=== PATIENT | female | born 1945 | race Caucasian/White ===

== ENCOUNTER 2017-02-01 02:41 | Observation (INO) ==
--- NOTE | 2017-02-01 02:51 | Emergency Department Note ---
Disposition Clinical Impression: Chest pain Qualifiers: Chest pain type: unspecified Qualified Code(s): R07.9 - Chest pain, unspecified Disposition: Admitted As Inpatient Condition: Fair Referrals: Nicolas Ralph MD [Primary Care Provider] - Time of Disposition: 07:04 Chest Pain HPI - General Chief Complaint: ED Chest Pain Stated Complaint: chest pain Time Seen by Provider: 02/01/17 02:45 Vital Signs Reviewed: Yes Nursing Notes Reviewed: Yes - History of Present Illness Pt complaint: chest pain Onset (ago): Just [employer] Duration: constant Onset: during rest Pain Location: left chest Severity scale (1-10): 6 (6/10After nitroglycerin, 10 /10 prior to nitroglycerin ) Pain Radiation: none Improves with: nitroglycerin Worsens with: exertion Associated symptoms: Reports: other (Abdominal pain) Treatments prior to arrival chest pain: aspirin, nitroglycerin, oxygen - Related Data Home Medications Medication Instructions Recorded Confirmed Cyclobenzaprine [Flexeril] 10 mg PO BID PRN 02/01/17 02/01/17 Gabapentin [Neurontin] 200 mg PO TID 02/01/17 02/01/17 Ibuprofen [Motrin] 600 mg PO Q8HR PRN 02/01/17 02/01/17 Lisinopril/Hydrochlorothiazide 1 tab PO DAILY 02/01/17 02/01/17 [Zestoretic 20-25 mg Tablet] Metoprolol Tartrate [Lopressor] 50 mg PO BID 02/01/17 02/01/17 Omeprazole [PriLOSEC] 20 mg PO DAILY 02/01/17 02/01/17 Simvastatin [Zocor] 40 mg PO HS 02/01/17 02/01/17 Tizanidine HCl 4 mg PO TID PRN 02/01/17 02/01/17 traZODone [TraZODone] 50 mg PO HS 02/01/17 02/01/17 Allergies Allergy/AdvReac Type Severity Reaction Status Date / Time levothyroxine sodium Allergy Hives Verified 02/01/17 02:45 [From Synthroid] losartan Allergy Hives Verified 02/01/17 02:45 All systems ED: reviewed and negative except as stated. Constitutional: Denies: fever, chills Eyes: Denies: eye discharge ENT ED: Denies: throat pain, dental pain Cardiovascular: Reports: as per HPI. Denies: dyspnea on exertion, orthopnea Respiratory: Denies: cough, dyspnea, wheezes, hemoptysis Gastrointestinal: Reports: abdominal pain. Denies: nausea, vomiting Genitourinary: Denies: dysuria Musculoskeletal: Denies: back pain Integumentary: Denies: rash Neurological: Denies: headache, weakness Endocrine: Denies: fatigue Hematological/Lymphatic: Denies: easy bleeding Allergic/Immunologic: Denies: facial swelling Chest Pain PMH - Past Medical History Medical history: Reports: hyperlipidemia, hypertension, myocardial infarction, thyroid disease, other (chronic back pain) Prior Cardiac Testing/Procedures: Stress Test (early ), Cardiac Angiogram ( late ) Physical Exam - General Limitations: no limitations General appearance: alert, in no apparent distress - Head Head exam: normocephalic - Eye Eye exam: Present: EOMI. Absent: conjunctival injection - ENT ENT exam: normal oropharynx, mucous membranes moist - Neck Neck exam: Present: full ROM. Absent: tenderness, meningismus - Chest Chest inspection: Present: symmetric chest wall rise. Absent: tenderness - Respiratory Respiratory exam: Present: normal lung sounds bilaterally. Absent: respiratory distress - Cardiovascular Cardiovascular exam: Present: regular rate, normal rhythm - Abdominal Exam Abdominal exam: Present: soft, Non-Tender. Absent: distention, guarding, rebound - Extremities Exam Extremities exam: Present: normal inspection, full ROM, normal capillary refill - Back Exam Back exam: Present: normal inspection, full ROM - Neurological Exam Neurological exam: Present: alert, oriented X3 - Psychiatric Psychiatric exam: Present: normal affect, normal mood - Skin Skin exam: Present: warm, dry, intact, normal color. Absent: rash, cyanosis, diaphoresis Course Course Narrative: 71-year-old female arrives by squad with complaints of chest pain. Chest pain started while she was at rest at home. She describes this left-sided. Does not radiate. She compares it to her previous heart attack that she had many years ago. Pain worsened when she walked to the bathroom. She also mentions she started to have some abdominal pain since the last pain started. The squad, patient complained of 10 out of 10 pain. She had some relief with nitroglycerin. Patient states her pain is 6 out of 10. She denies nausea vomiting, recent illness, shortness of breath, back neck or extremity pain, lightheadedness. Seen and examined. Workup initiated. She declines additional pain medications at this time. - Reevaluation(s) Reevaluation #1: EKG shows sinus bradycardia, left ventricular hypertrophy. Blood pressure maintained was 218/110. Patient states her pain is increasing. We will order additional nitroglycerin, and morphine for her pain. Time: 03:22 Reevaluation #2: Pt stated after morphine and nitro her pain decreased slightly. now 8/10 with GARDINER. No acute findings on chest x-ray. Discussed patient with Dr. Huizar who agrees for admission for cardiac rule out. Troponin and lab still pending. Time: 04:09 Reevaluation #3: Patient discussed with and accepted by hospitalist. After my discussion with the hospitalist, was notified and nursing the patient's pain and worsened. On reexamination patient was stating that her pain had increased after she stood up and walked to the bathroom. She denies any shortness of breath, diaphoresis , nausea. Analgesics ordered. Time: 05:04 Additional Reevaluation(s): @5:51 Discussed pt with hospitaltist, who requested EKG sent to cardiology. I discussed pt with Dr. Maynard, and sent EKGs. He advised heparain. AFter reading EKG he replied atypical LBBB, start IV nitro drip and metoprolol 5 and admit to hospitalist. If not feeling better then they could cath to be sure. @6:56 Pt has received IV nitro and metoprolol. Her BP has improved. She states her pain has improved. Pt will be transferred to inpatient care. Vital Signs Temperature 96.4 F L 02/01/17 02:45 Pulse Rate 72 02/01/17 02:45 Respiratory Rate 18 02/01/17 02:45 Blood Pressure 0/0 02/01/17 02:45 O2 Sat by Pulse Oximetry 96 02/01/17 02:45 Temperature 96.4 F L 02/01/17 02:45 Pulse Rate 62 02/01/17 06:20 Respiratory Rate 18 02/01/17 06:20 Blood Pressure 186/146 02/01/17 06:20 O2 Sat by Pulse Oximetry 99 02/01/17 06:20 Oxygen Delivery Oxygen Delivery Nasal Cannula Chest Pain - [facility] Narrative Medical decision making narrative: Patient presented from home with chest pain. She did have improvement with nitroglycerin. No elevation in troponin. Decision was made to the hospitalist. EKGs were reviewed, concerning for possible left bundle branch block, I had sent the EKGs to Dr. Maynard for review, he replied atypical bundle branch block, treat with IV nitroglycerin and metoprolol, if no improvement will consider cath. His medications were given to the patient she did have improvement. Patient and EKGs was discussed with Dr. Huizar also had face time with patient, and stated less concerning for need for cath and to admit for hospitalist as well. She is resting comfortably in bed. BP improved. Pain improved. Pt stable for transfer to inpatient care. - Lab Data Lab results reviewed: Yes I reviewed the patient's lab results. Result diagrams: 02/01/17 03:57 02/01/17 03:57 Lab Results 02/01/17 02/01/17 02/01/17 Range/Units 03:57 03:57 03:57 WBC 6.9 (4.3-11.1) K/mcL RBC 3.61 L (3.82-4.97) M/mcL Hgb 11.4 L (11.5-15.4) g/dL Hct 33.8 L (35.3-44.9) % MCV 93.6 (83.0-100.0) fL MCH 31.6 (28.0-33.3) pg MCHC 33.7 (31.6-35.5) g/dL RDW 12.4 (11.5-14.5) % Plt Count 198 (140-400) K/mcL MPV 10.7 (9.4-12.4) fL Immature Gran % 0.3 (0-4) % Seg Neutrophils % 38.8 % Lymphocytes % 22.7 % Monocytes % 8.6 % Eosinophils % 28.4 % Basophils % 1.2 % Neutrophils # 2.7 (1.6-8.9) K/mcL Lymphocytes # 1.6 (0.6-4.6) K/mcL Monocytes # 0.6 (0.0-1.3) K/mcL Eosinophils # 2.0 H (0.0-0.6) K/mcL Basophils # 0.1 (0.0-0.2) K/mcL Platelet Estimate Normal (Normal) PT 11.3 (9.4-12.1) Seconds INR 1.0 APTT 27.5 (26.0-36.0) Seconds Sodium (136-145) mEq/L Potassium (3.5-4.5) mEq/L Chloride (98-109) mEq/L Carbon Dioxide (19-29) mEq/L BUN (7-20) mg/dL Creatinine (0.57-1.11) mg/dL Est GFR ( Amer) (> 60) Est GFR (Non-Af Amer) (> 60) BUN/Creatinine Ratio (6-26) Glucose (70-99) mg/dL Calculated Osmolality (280-300) Calcium (8.6-10.8) mg/dL Total Bilirubin 0.5 (0.2-1.2) mg/dL Direct Bilirubin 0.2 (0.0-0.5) mg/dL Indirect Bilirubin 0.3 (0.0-1.2) mg/dL AST 30 (5-34) Units/L ALT 27 (0-55) Units/L Alkaline Phosphatase 92 (38-126) Units/L Troponin I (0-0.03) ng/mL Serum Total Protein 5.8 L (6.0-8.3) g/dL Albumin 3.4 L (3.5-5.0) g/dL Globulin 2.4 (2.4-3.5) g/dL Albumin/Globulin Ratio 1.4 (1.1-2.2) Lipase 59 (8-78) Units/L 02/01/17 02/01/17 Range/Units 03:57 03:57 WBC (4.3-11.1) K/mcL RBC (3.82-4.97) M/mcL Hgb (11.5-15.4) g/dL Hct (35.3-44.9) % MCV (83.0-100.0) fL MCH (28.0-33.3) pg MCHC (31.6-35.5) g/dL RDW (11.5-14.5) % Plt Count (140-400) K/mcL MPV (9.4-12.4) fL Immature Gran % (0-4) % Seg Neutrophils % % Lymphocytes % % Monocytes % % Eosinophils % % Basophils % % Neutrophils # (1.6-8.9) K/mcL Lymphocytes # (0.6-4.6) K/mcL Monocytes # (0.0-1.3) K/mcL Eosinophils # (0.0-0.6) K/mcL Basophils # (0.0-0.2) K/mcL Platelet Estimate (Normal) PT (9.4-12.1) Seconds INR APTT (26.0-36.0) Seconds Sodium 135 L (136-145) mEq/L Potassium 3.5 (3.5-4.5) mEq/L Chloride 98 (98-109) mEq/L Carbon Dioxide 31 H (19-29) mEq/L BUN 14 (7-20) mg/dL Creatinine 0.83 (0.57-1.11) mg/dL Est GFR ( Amer) > 60 (> 60) Est GFR (Non-Af Amer) > 60 (> 60) BUN/Creatinine Ratio 17 (6-26) Glucose 109 H (70-99) mg/dL Calculated Osmolality 281 (280-300) Calcium 8.8 (8.6-10.8) mg/dL Total Bilirubin (0.2-1.2) mg/dL Direct Bilirubin (0.0-0.5) mg/dL Indirect Bilirubin (0.0-1.2) mg/dL AST (5-34) Units/L ALT (0-55) Units/L Alkaline Phosphatase (38-126) Units/L Troponin I 0.02 (0-0.03) ng/mL Serum Total Protein (6.0-8.3) g/dL Albumin (3.5-5.0) g/dL Globulin (2.4-3.5) g/dL Albumin/Globulin Ratio (1.1-2.2) Lipase (8-78) Units/L - Radiology Data Radiology results reviewed: Yes I reviewed the patient's radiology results. - EKG Data EKG attestation: Yes I reviewed and interpreted this EKG. Heart Score - Score History: Moderately Suspicious EKG: Non Specific repolarisation Disturbance Age: Greater than 65 Risk Factors: Equal/Greater than 3 risk factor or history of atherosclerotic disease Troponin: Less than normal limit HEART Score Total: 6
[2017-02-01] MEDS ORDERED: Ondansetron 4 MG/2 ML VIAL IVP ONE (03:17)
[2017-02-01] MEDS ORDERED: *HR* Morphine 2 MG/ML SYRINGE IVP ONE (03:17)
[2017-02-01] MEDS ORDERED: Nitroglycerin 0.4 MG TAB.SUBL SL PRN (03:23)
[2017-02-01 04:05] LABS: Basophils # 0.1 K/mcL (0.0-0.2); Basophils % 1.2 %; Eosinophils % 28.4 %; Hematocrit 33.8 % (35.3-44.9); Hemoglobin 11.4 g/dL (11.5-15.4); Immature Granulocytes % 0.3 % (0-4); Lymphocytes # 1.6 K/mcL (0.6-4.6); Lymphocytes % 22.7 %; Mean Corpuscular HGB Conc 33.7 g/dL (31.6-35.5); Mean Corpuscular Hemoglobin 31.6 pg (28.0-33.3); Mean Corpuscular Volume 93.6 fL (83.0-100.0); Mean Platelet Volume 10.7 fL (9.4-12.4); Monocytes # 0.6 K/mcL (0.0-1.3); Monocytes % 8.6 %; Neutrophils # 2.7 K/mcL (1.6-8.9); Platelet Count 198 K/mcL (140-400); Red Blood Count 3.61 M/mcL (3.82-4.97); Red Cell Distribution Width 12.4 % (11.5-14.5); Segmented Neutrophils % 38.8 %
[2017-02-01 04:11] LABS: Prothrombin Time 11.3 Seconds (9.4-12.1)
--- NOTE | 2017-02-01 04:11 | Emergency Department Note ---
START Narrative - START START: I examined this patient and my medical decision-making was reviewed with the ASSURANCE SPECIALIST/PA/Advanced Practice Nurse/Resident Physician. I agree with the documented findings, disposition and treatment plan as described except to the extent set forth below. ED attending note: Patient seen with an assistant curator Bob Yan. Please see a copy of his note for details of the H&P, evaluation, management and disposition of this patient. We independently had [id number] contact with the patient Briefly: 71-year-old female history of antibiotic in the 90s presents with chest pain by EMS. Patient says it feels like this spell. Aspirin and nitroglycerin helped relieve the pain Lorabid. EKG ischemic changes. Troponin chest x-ray and other labs pending with admission anticipated. Provided 30 minutes critical care service for this patient.
[2017-02-01 04:13] LABS: Activated Partial Thrombo Time 27.5 Seconds (26.0-36.0)
[2017-02-01 04:18] LABS: BUN/Creatinine Ratio 17 (6-26); Blood Urea Nitrogen 14 mg/dL (7-20); Calcium 8.8 mg/dL (8.6-10.8); Carbon Dioxide 31 mEq/L (19-29); Chloride 98 mEq/L (98-109); Glucose 109 mg/dL (70-99); Osmolality,Calculated 281 (280-300); Potassium 3.5 mEq/L (3.5-4.5); Sodium 135 mEq/L (136-145); eGFR For African Americans > 60 (> 60); eGFR For Non-African Americans > 60 (> 60)
[2017-02-01 04:19] LABS: Albumin 3.4 g/dL (3.5-5.0); Albumin/Globulin Ratio 1.4 (1.1-2.2); Bilirubin,Direct 0.2 mg/dL (0.0-0.5); Bilirubin,Indirect 0.3 mg/dL (0.0-1.2); Bilirubin,Total 0.5 mg/dL (0.2-1.2); Globulin 2.4 g/dL (2.4-3.5); Total Protein 5.8 g/dL (6.0-8.3)
[2017-02-01 04:27] LABS: Platelet Estimate Normal (Normal)
[2017-02-01] MEDS ORDERED: *HR* HYDROmorphone (PF) 1 MG/ML SYRINGE IVP ONE (04:57)
[2017-02-01] MEDS ORDERED: *HR* FentaNYL (PF) 100 MCG/2 ML VIAL IVP ONE (05:01)
[2017-02-01] MEDS ORDERED: *HR* Metoprolol 5 MG/5 ML VIAL IVP ONE (05:50)
[2017-02-01] MEDS ORDERED: *HR* Heparin 5,000 UNIT/ML VIAL IVP ONE (05:52)
[2017-02-01] MEDS ORDERED: Heparin 25,000 UNIT/500 ML D5W 25,000 UNIT/500 ML MLS IVC SCH (06:00)
[2017-02-01] MEDS ORDERED: Nitroglycerin 25 MG/250 ML INFUS..BTL IVC SCH (06:00)
[2017-02-01] MEDS ORDERED: Naloxone 0.4 MG/ML INJ IVP PRN (08:26)
[2017-02-01] MEDS ORDERED: tiZANidine 4 MG TABLET PO PRN (08:28)
[2017-02-01] MEDS ORDERED: Ibuprofen 600 MG TABLET PO PRN (08:28)
--- NOTE | 2017-02-01 08:44 | Cardiology Consult Note ---
Date of Encounter: 02/01/17 Time of Encounter: 08:39 Assessment and Plan (1) Hypertensive emergency Current Visit: Yes Status: Acute B/p increased to 200/123 associated with chest pain. LVH on EKG. Titrate NTG gtt to keep b/p less than 160 systolic and chest pain level to 0/ 10. Avoid sudden decrease in b/p. Consider increasing lisinopril to 20 mg daily. Check TTE. (2) Chest pain Current Visit: Yes Status: Acute Reports h/o NE in 1996 d/t medication reaction. No intervention. Continues to have chest pain despite antianginals and IV morphine and dilaudid. Troponin negative x1. Continue to trend. EKG shows SR. There is mild widening of the QRS compared to previous EKG but no significant change. Serial EKG. Check TTE. Continue b/p control. On heparin gtt, d/c if second troponin negative. Qualifiers: Chest pain type: unspecified Qualified Code(s): R07.9 - Chest pain, unspecified Discussion w patient/family: The assessment and plan as outlined above was discussed with the patient and/or family members who expressed understanding and agreement. All questions were answered. Thank you for involving us in the care of your patient. Please call with any questions. History of Present Illness Consult date: 02/01/17 Requesting physician: Yuridia Kaba Consult reason: Chest pain, abnormal EKG Chief complaint: Chest pain, elevated b/p History of present illness: Ms. Ibanez is a 71 year old female with a history of NE in 1996 with no intervention, hypertension, and breast cancer s/p chemotherapy and radiation. She presents with sudden onset of chest pain starting at 0100 this morning. The pain woke her from her sleep and is described as a left sided chest dull ache radiating down her left arm. Her pain increased after ambulating to the bathroom. She was found to have elevated blood pressure up to 200/220. She was given NTG, morphine, dilauded, and tylenol without relief of her pain. She continues to have 8/10 chest pain that is constant. Past Med Surg Social Fam HX - Past Medical History Attestation: Yes The following information was validated with the patient. Medical history: hyperlipidemia, hypertension, myocardial infarction, thyroid disease, other (LHC in 1996 showed did not show any flow limiting lesions. ) Psychiatric history: no psych history - Social History Smoking Status: Never smoker Smokeless Tobacco Status: No Alcohol use: none Drug use: none Medications and Allergies Cyclobenzaprine [Flexeril] 10 mg PO BID PRN 02/01/17 [History] Gabapentin [Neurontin] 200 mg PO TID 02/01/17 [History] Ibuprofen [Motrin] 600 mg PO Q8HR PRN 02/01/17 [History] Lisinopril/Hydrochlorothiazide [Zestoretic 20-25 mg Tablet] 1 tab PO DAILY 02/01 [History] Metoprolol Tartrate [Lopressor] 50 mg PO BID 02/01/17 [History] Omeprazole [PriLOSEC] 20 mg PO DAILY 02/01/17 [History] Simvastatin [Zocor] 40 mg PO HS 02/01/17 [History] Tizanidine HCl 4 mg PO TID PRN 02/01/17 [History] traZODone [TraZODone] 50 mg PO HS 02/01/17 [History] Allergies levothyroxine sodium [From Synthroid] Allergy (Verified 02/01/17 02:45) Hives losartan Allergy (Verified 02/01/17 02:45) Hives All Systems Review: A 10-system review of systems was performed and is negative for pertinent findings except as documented above in the HPI. Physical Examination Vital Signs, Last 4 Hours Temp Pulse Resp BP Pulse Ox 02/01/17 07:52 97.5 F L 64 15 174/108 100 02/01/17 06:58 18 168/109 02/01/17 06:20 62 18 186/146 99 02/01/17 06:01 61 18 200/114 94 02/01/17 05:18 62 18 200/123 99 General: Conversant, Other (Gaurding chest, restless) HEENT: Atraumatic, Normocephaly, Mucus Membranes Moist Neck: No JVD, Normal carotid pulses Cardiac: Reg Rate and Rhythm, Normal S1 and S2, No Murmur Lungs: Normal Breath Sounds, No Wheeze, Rales, Rhonchi Neuro: Alert and responsive, No focal deficits noted Abdomen: Soft, Non-Tender Skin: No rashes noted on visualized skin Musculoskeletal: No Chest Wall Tenderness Extremities: No Clubbing, No Cyanosis, No Edema, Normal Pulses Results 02/01/17 03:57 02/01/17 03:57 - Imaging and Cardiology Echo: pending - EKG Interpretation EKG results cardiology: personally reviewed (SR, LVH, QRS 123 increased from previous. No acute ST changes.) Consult Discharge Plan - Plan Referrals: Nicolas Ralph MD [Primary Care Provider] -
--- NOTE | 2017-02-01 08:52 | Internal Med History&Physical ---
Date of Encounter: 02/01/17 Time of Encounter: 08:30 Assessment and Plan (1) Chest pain Current visit: Yes Status: Acute Will admit for observation to rule out ACS Titrate NTG gtt and closely monitor BP restart home medications (Lisinopril/HCTZ ) Initial TNI negative continue to trend serial TNI currently on Heparin gtt, will be discontinued if second TNI is negative shop director to evaluate the patient later this morning f/u 2D echo O2 supplementation as needed patient refusing any pain medications at this time Qualifiers: Chest pain type: unspecified Qualified Code(s): R07.9 - Chest pain, unspecified (2) Hypertensive urgency Current visit: Yes Status: Acute Noted to be hypertensive upon arrival reports of being compliant with home meds will continue home medications closely monitor BP titrate Nitro gtt to maintain SBP<160 f/u 2D echo (3) Hyperlipemia Current visit: Yes Status: Chronic continue statin Qualifiers: Hyperlipidemia type: unspecified Qualified Code(s): E78.5 - Hyperlipidemia , unspecified (4) Chronic back pain Current visit: Yes Status: Chronic continue home medications will hold Ibuprofen Qualifiers: Back pain location: low back pain Back pain laterality: unspecified Sciatica presence: without sciatica Qualified Code(s): M54.5 - Low back pain; G89.29 - Other chronic pain (5) DVT prophylaxis Current visit: Yes Status: Acute anticoagulated with heparin gtt will do heparin SQ once heparin gtt is discontinued Internal Medicine - H&P: HPI Chief complaint: Chest pain Admitted From: Home Plans for Post Hospital Care: Home History of present illness: Ms. Ibanez is a 71 year old female with PMH of HTN, prior OR in 1996, HLD, chronic lower back pain, and breast cancer s/p chemotherapy and radiation who was admitted for management of acute onset of left sided chest pain. Patient reports of being awoken up from sleep due to this left sided dull achy chest pain that was radiating down her left arm. She reports of the pain being consistent with the OR she had in the past. Denies any associated symptoms. Denies any alleviating or exacerbating factors. Upon arrival to the ER, patient was noted to be have negative TNI however EKG consistent with LBBB. Cardiology was consulted by the ER physician and patient was started on heparin gtt and nitroglycerin drip. Upon further evaluation, the EKG was consistent with patient 's old EKG and no acute changes were reported. Patient is seen and examined. She is tearful and continues to complain of generalized chest pain with diffuse body aches. She denies any headache, dizziness, shortness of breath, abd pain, n /v, fever, or chills at this time. She has received morphine and Dilaudid without adequate relief. Patient has been seen by Sohail Staples Cardiology MECHANICAL CAD DRAFTER and is to be evaluated by shop director later this morning. Past Med Surg Social Fam HX - Past Medical History Medical history: hyperlipidemia, hypertension, myocardial infarction, thyroid disease, other Psychiatric history: no psych history - Social History Smoking Status: Never smoker Smokeless Tobacco Status: No Alcohol use: occasionally (3-4 times a week (a glass of wine)) Drug use: none Internal Medicine - H&P: Meds Cyclobenzaprine [Flexeril] 10 mg PO BID PRN 02/01/17 [History] Gabapentin [Neurontin] 200 mg PO TID 02/01/17 [History] Ibuprofen [Motrin] 600 mg PO Q8HR PRN 02/01/17 [History] Lisinopril/Hydrochlorothiazide [Zestoretic 20-25 mg Tablet] 1 tab PO DAILY 02/01 [History] Metoprolol Tartrate [Lopressor] 50 mg PO BID 02/01/17 [History] Omeprazole [PriLOSEC] 20 mg PO DAILY 02/01/17 [History] Simvastatin [Zocor] 40 mg PO HS 02/01/17 [History] Tizanidine HCl 4 mg PO TID PRN 02/01/17 [History] traZODone [TraZODone] 50 mg PO HS 02/01/17 [History] Allergies levothyroxine sodium [From Synthroid] Allergy (Verified 02/01/17 02:45) Hives losartan Allergy (Verified 02/01/17 02:45) Hives All Systems PM: A 10-system review of systems was performed and is negative for pertinent findings except as documented above in the HPI. - Constitutional Constitutional: as per HPI - Constitutional Vitals: Temp Pulse Resp BP Pulse Ox 97.5 F L 64 15 174/108 100 02/01/17 07:52 02/01/17 07:52 02/01/17 07:52 02/01/17 07:52 02/01/17 07:52 General appearance: Present: mild distress (painful distress), A&O X 3, obese - Head Head exam: Present: atraumatic, normocephalic - Eye Eye exam: Present: normal appearance, conjuntiva pink, sclera anicteric - Respiratory Respiratory exam: Present: CTAB. Absent: respiratory distress, wheezes - Cardiovascular Cardiovascular exam: Present: RRR, +S1, +S2. Absent: diastolic murmur, gallop, rubs, systolic murmur - GI/Abdominal GI/Abdominal exam: Present: normal bowel sounds, soft. Absent: distended, tenderness - Extremities Exam Extremities exam: Present: pedal edema (mild ankle pitting edema bilaterally ), warm, radial pulses palpable and symetrical. Absent: calf tenderness, cyanotic - Neurological Exam Neurological exam: Present: alert, oriented X3 - Psychiatric Psychiatric exam: Present: normal affect, normal mood Internal Med - H&P Results - Labs CBC & Chem 7: 02/01/17 03:57 02/01/17 03:57
[2017-02-01] MEDS: Gabapentin 100 MG CAPSULE PO SCH ×3 (08:58→21:39)
[2017-02-01] MEDS ORDERED: Aspirin 325 MG TABLET PO SCH (09:00)
[2017-02-01] MEDS ORDERED: ALPRAZolam 0.25 MG TABLET PO ONE (10:12)
[2017-02-01] MEDS: amLODIPine 5 MG TABLET PO SCH (12:28)
--- NOTE | 2017-02-01 12:37 | Electrocardiograph Report ---
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
[2017-02-01] MEDS ORDERED: ALPRAZolam 0.25 MG TABLET PO PRN (15:20)
[2017-02-01] MEDS: *HR* Heparin 5,000 UNIT/ML VIAL SQ SCH (18:34)
--- NOTE | 2017-02-01 20:23 | Electrocardiograph Report ---
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
[2017-02-01] MEDS ORDERED: traZODone 50 MG TABLET PO SCH (21:00)
[2017-02-02 03:28] LABS: Basophils # 0.1 K/mcL (0.0-0.2); Basophils % 0.6 %; Eosinophils # 1.3 K/mcL (0.0-0.6); Eosinophils % 16.3 %; Hematocrit 32.3 % (35.3-44.9); Hemoglobin 10.9 g/dL (11.5-15.4); Immature Granulocytes % 0.4 % (0-4); Lymphocytes # 1.5 K/mcL (0.6-4.6); Lymphocytes % 18.2 %; Mean Corpuscular HGB Conc 33.7 g/dL (31.6-35.5); Mean Corpuscular Hemoglobin 31.1 pg (28.0-33.3); Mean Platelet Volume 11.2 fL (9.4-12.4); Monocytes # 0.7 K/mcL (0.0-1.3); Monocytes % 8.7 %; Neutrophils # 4.6 K/mcL (1.6-8.9); Platelet Count 182 K/mcL (140-400); Red Blood Count 3.51 M/mcL (3.82-4.97); Red Cell Distribution Width 12.2 % (11.5-14.5); Segmented Neutrophils % 55.8 %
[2017-02-02 03:36] LABS: BUN/Creatinine Ratio 15 (6-26); Blood Urea Nitrogen 12 mg/dL (7-20); Calcium 8.4 mg/dL (8.6-10.8); Carbon Dioxide 30 mEq/L (19-29); Chloride 95 mEq/L (98-109); Chol/HDL Ratio 3.6 (0-4.9); Cholesterol 133 mg/dL (< 200); Glucose 124 mg/dL (70-99); HDL Cholesterol 37 mg/dL (40-59); LDL Cholesterol,Calculated 59 mg/dL (0-99); Magnesium 1.1 mg/dL (1.6-2.6); Osmolality,Calculated 281 (280-300); Potassium 3.2 mEq/L (3.5-4.5); Sodium 135 mEq/L (136-145); Triglycerides 183 mg/dL (< 150); eGFR For African Americans > 60 (> 60); eGFR For Non-African Americans > 60 (> 60)
[2017-02-02] MEDS ORDERED: Magnesium Sulfate 2 GM in D5% in Water 100 ML IVPB ONE (03:51)
[2017-02-02] MEDS: *HR* Heparin 5,000 UNIT/ML VIAL SQ SCH (05:17)
[2017-02-02 07:34] VITALS: BP 120/80
[2017-02-02] MEDS ORDERED: Aspirin Enteric Coated 81 MG Tablet PO SCH (09:00)
[2017-02-02] MEDS: Gabapentin 100 MG CAPSULE PO SCH (09:12)
[2017-02-02] MEDS: amLODIPine 5 MG TABLET PO SCH (09:13)
[2017-02-02] MEDS ORDERED: tiZANidine 4 MG TABLET PO PRN (09:59)
[2017-02-02] MEDS ORDERED: Regadenoson 0.4 MG/5 ML SYRINGE IVP ONE (10:14)
--- NOTE | 2017-02-02 10:14 | Cardiology Progress Note ---
Date of Encounter: 02/02/17 Time of Encounter: 10:11 Assessment and Plan (1) Chest pain Current Visit: Yes Status: Acute Reports h/o CA in 1996 d/t medication reaction. No intervention. Continues to have atypical chest pain. Troponin negative x 1. EKG shows SR. There is mild widening of the QRS compared to previous EKG but no significant change. TTE shows EF 55-60%, mild diastolic dysfunction, no significant valvular disease. Continue b/p control. Recommend nuclear stress test for further evaluation and patient agrees. Qualifiers: Chest pain type: unspecified Qualified Code(s): R07.9 - Chest pain, unspecified (2) Hypertensive emergency Current Visit: Yes Status: Acute B/p increased to 200/123 while in ER associated with chest pain. LVH on EKG. B/p improved after addition of norvasc. NTG gtt weaned off. Continue low sodium diet. Discussion w patient/family: The assessment and plan as outlined above was discussed with the patient and/or family members who expressed understanding and agreement. All questions were answered. Thank you for involving us in the care of your patient. Please call with any questions. Subjective Principal diagnosis: Chest pain, HTN Interval history: Ms. Ibanez continues to have left sided chest discomfort and left neck pain that is constant. Pain increases with ambulation to the bathroom. She states she is feeling better. B/p improved. Objective Vital Signs, Last 4 Hours Temp Pulse Resp BP Pulse Ox 02/02/17 07:32 98.1 F 70 16 120/80 94 General: Conversant, No Apparent Distress HEENT: Atraumatic, Normocephaly, Mucus Membranes Moist Neck: No JVD, Normal carotid pulses Cardiac: Reg Rate and Rhythm, Normal S1 and S2, No Murmur Lungs: Normal Breath Sounds, No Wheeze, Rales, Rhonchi Neuro: Alert and responsive, No focal deficits noted Abdomen: Soft, Non-Tender Skin: No rashes noted on visualized skin Musculoskeletal: Other (Chest pain mildly reproducible on left chest wall. ) Extremities: No Clubbing, No Cyanosis, No Edema, Normal Pulses Results 02/02/17 03:10 02/02/17 03:10 Lab Results 02/01/17 02/02/17 02/02/17 17:18 03:10 03:10 WBC 8.2 Hgb 10.9 L Hct 32.3 L Plt Count 182 Sodium 135 L Potassium 3.2 L Chloride 95 L Carbon Dioxide 30 H BUN 12 Creatinine 0.82 Glucose 124 H Calcium 8.4 L Magnesium 1.1 L Troponin I 0.02 - Imaging and Cardiology Echo: report reviewed - EKG Interpretation EKG results cardiology: personally reviewed Consult Discharge Plan - Plan Referrals: Nicolas Ralph MD [Primary Care Provider] -
--- NOTE | 2017-02-02 12:17 | Nuclear Medicine Stress Report ---
Regadenoson Nuclear Stress Name: Karen Ibanez Date of Study: 02/02/2017 Date: 1945 Ht: 63.0 in Medical Record#: [id number] Age: 71 Wt: 171.0 lb Gender: Female Order #: [id number] Location: [facility] OP Room: [facility] Supervising Provider: Sohail Staples CNP Reading Physician: Wero Hernandez MD, MERGED WITH [facility] Ordering Physician: Yuridia Kaba MD Primary Care Physician: Nicolas Ralph MD Stress Technologist: Juanita Menendez RRT Investigative Assistant: Amelie Tenorio Indications: Chest Pain Impression: The patient demonstrated a hypotensive blood pressure response to regadenoson. Patient was given IV fluids. Blood pressure returned to baseline in recovery. No significant ECG changes with regadenoson. Gated LVEF = 62%. Perfusion imaging was negative for ischemia or infarct. History: Hypertension Hypercholesteremia Stress Test Summary: Stress Test Type: Pharmacologic Regadenoson 0.4mg/5ml given IV Baseline Information: Initial Heart Rate: 77 Blood Pressure: 124/84 Stress Information: Test Terminated Due to (primary): As per protocol Maximum Blood Pressure: 90/56 Maximum Heart Rate: 92 Percent Maximum Heart Rate Achieved: 61 Double Product: [id number] Symptoms: No chest symptoms Nuclear Summary: SPECT myocardial perfusion imaging using Tc99m Sestamibi given intravenously was performed at rest and following cardiac stress testing. The resting images were obtained following initial dose of 9.8 mCi. Following stress an additional dose of 34.4 mCi was given at peak exercise or 30 seconds post regadenoson infusion. Findings: Stress Note * Resting ECG demonstrated sinus rhythm with incomplete LBBB. * No baseline arrhythmias were noted. * Patient had no chest pain during stress. * No arrhythmias were noted during stress. * No significant ECG changes with regadenoson. Hemodynamic responses * The patient demonstrated a hypotensive blood pressure response to regadenoson. Patient was given IV fluids. Blood pressure returned to baseline in recovery. Study Quality * Study quality is average. Gated EF % * Gated LVEF = 62%. Left Ventricle * The left ventricle is not dilated. * Normal Segmental Perfusion in rest. * Normal segmental perfusion in stress. * Inferior artifact is noted. TID * No evidence of transient ischemic dilatation. Updated by Wero Hernandez MD, FACC on 02/02/2017 12:11:15 PM electronically signed on 02/02/2017 12:12:26 PM with status of Final
--- NOTE | 2017-02-02 12:58 | Event Note ---
Date of Encounter: 02/02/17 Time of Encounter: 12:54 - Cardiology Event Note Stress test was negative for ischemia or infarct. TTE showed preserved LV function. No further cardiac testing at this time. Chest pain is reproducible. Reports starting recent exercise program for physical therapy and "over doing it." Continue risk factor modification. F/u with cardiology as needed.
--- NOTE | 2017-02-02 13:49 | Discharge Summary ---
Date of Encounter: 02/02/17 Time of Encounter: 08:50 - Discharge Diagnosis (1) Chest pain Priority: Primary Status: Resolved Qualifiers: Chest pain type: unspecified Qualified Code(s): R07.9 - Chest pain, unspecified (2) Hypertensive urgency Priority: Primary Status: Resolved (3) Hyperlipemia Priority: Secondary Status: Chronic Qualifiers: Hyperlipidemia type: unspecified Qualified Code(s): E78.5 - Hyperlipidemia , unspecified (4) Chronic back pain Priority: Secondary Status: Chronic Qualifiers: Back pain location: low back pain Back pain laterality: unspecified Sciatica presence: without sciatica Qualified Code(s): M54.5 - Low back pain; G89.29 - Other chronic pain (5) DVT prophylaxis Priority: Secondary Status: Acute - Discharge Medications Home Medications: RX: Cyclobenzaprine [Flexeril] 10 mg PO BID PRN 02/01/17 [History] RX: Gabapentin [Neurontin] 200 mg PO TID 02/01/17 [History] RX: Ibuprofen [Motrin] 600 mg PO Q8HR PRN 02/01/17 [History] RX: Lisinopril/Hydrochlorothiazide [Zestoretic 20-25 mg Tablet] 1 tab PO DAILY 02/01/17 [History] RX: Metoprolol Tartrate [Lopressor] 50 mg PO BID 02/01/17 [History] RX: Omeprazole [PriLOSEC] 20 mg PO DAILY 02/01/17 [History] RX: Simvastatin [Zocor] 40 mg PO HS 02/01/17 [History] RX: Tizanidine HCl 4 mg PO TID PRN 02/01/17 [History] RX: traZODone [TraZODone] 50 mg PO HS 02/01/17 [History] Allergies/Adverse Reactions: Allergies levothyroxine sodium [From Synthroid] Allergy (Verified 02/01/17 02:45) Hives losartan Allergy (Verified 02/01/17 02:45) Hives Procedures/tests Complete & Pending: Procedures Performed prior 72 hours Category Date Time Status NM cole perf SPECT multi [NM] Routine Exams 02/02/17 08:44 Taken EKG [ECG 12 lead ECG] [ECG] Stat Y 02/01/17 09:33 Completed EV echocardiogram Stat Y 02/01/17 08:43 Completed SP pharm nuclear stress Routine Y 02/02/17 08:44 Completed Date of admission: 02/01/17 05:09 Primary care physician: Nicolas Ralph, Consults: Cardiology: Dr. Smith Discharging clinician: Yuridia Kaba Anticipated date of discharge: 02/02/17 - Patient Status Disposition: Home, Self-Care Condition: Good Functional capacity at discharge: independent ambulation Overall status at discharge: patient is back to baseline - Discharge Instructions Follow Up With: Nicolas Ralph MD [Primary Care Provider] - 02/13/17 2:00 pm (Please follow up as schedule...) Additional Instructions: Please follow up with your primary care physician within one week after your discharge from the hospital. Please follow up with your professor of languages within one to two weeks after your discharge from the hospital. Please resume all your home medications as prescribed by your primary care physician. - Diet and Activity Activity: resume usual activities as tolerated Diet: low salt diet Hospital course: Ms. Ibanez is a 71 year old female with PMH of HTN, prior [place] in 1996, HLD, chronic lower back pain, and breast cancer s/p chemotherapy and radiation who was admitted for management of acute onset of left sided chest pain and hypertensive urgency. Patient's elevated BP was anxiety driven which improved with initiation of Xanax along with her home antihypertensives. She was also followed by cardiology and underwent a nuclear stress test, which was negative for any ischemic perfusion defect. Her serial TNI were negative and no acute EKG changes were reported. Currently the patient is hemodynamically stable and reports of reproducible chest soreness secondary to the recent physical therapy regimen she has started. Patient is hemodynamically stable and will be discharged to home with follow up with her primary care physician and professor of languages. Pt demonstrates understanding of her diagnosis and agrees with the discharge care and plan. - Time Spent with Patient Total time spent providing and/or coordinating discharge services: Greater than 30 minutes - Constitutional Vitals: Temp Pulse Resp BP Pulse Ox 98.1 F 70 16 120/80 94 02/02/17 07:32 02/02/17 07:32 02/02/17 07:32 02/02/17 07:32 02/02/17 07:32 General appearance: Present: A&O X 3, no acute distress, obese - Head Head exam: Present: atraumatic, normocephalic - Eye Eye exam: Present: normal appearance, conjuntiva pink, sclera anicteric - Respiratory Respiratory exam: Present: CTAB. Absent: respiratory distress, wheezes - Cardiovascular Cardiovascular exam: Present: RRR, +S1, +S2 - GI/Abdominal GI/Abdominal exam: Present: normal bowel sounds, soft, no peritoneal signs. Absent: distended, tenderness - Extremities Exam Extremities exam: Present: warm, radial pulses palpable and symetrical. Absent : calf tenderness, cyanotic, pedal edema - Neurological Exam Neurological exam: Present: alert, oriented X3 - Psychiatric Psychiatric exam: Present: normal affect, normal mood
== END 2017-02-02 14:43 | disposition home or self-care (01) ==
LOC: EMEROO 02:41 → 3BNU 02:41 → SUATTDRO 05:09 → 2ANU 06:44
PROVIDERS: ADMIT Nurse Practitioner Family; ATTEND Internal Medicine

== ENCOUNTER 2019-04-27 15:14 | Inpatient (IN) ==
[2019-04-27] MEDS ORDERED: Water for inj. (sterile) 10 ML ONE (15:18)
[2019-04-27] MEDS ORDERED: Ziprasidone 20 MG/VIAL VIAL IM ONE (15:18)
[2019-04-27] MEDS ORDERED: Ziprasidone 20 MG in Water for inj. (sterile) 1 ML IM ONE (15:23)
[2019-04-27 15:59] LABS: Basophils # 0.1 K/mcL (0.0-0.2); Basophils % 0.9 %; Eosinophils # 0.2 K/mcL (0.0-0.6); Eosinophils % 3.4 %; Hematocrit 37.4 % (35.3-44.9); Immature Granulocytes % 0.3 % (0-4); Lymphocytes # 1.5 K/mcL (0.6-4.6); Lymphocytes % 24.1 %; Mean Corpuscular HGB Conc 34.8 g/dL (31.6-35.5); Mean Corpuscular Hemoglobin 31.6 pg (28.0-33.3); Mean Corpuscular Volume 90.8 fL (83.0-100.0); Mean Platelet Volume 11.2 fL (9.4-12.4); Monocytes # 0.9 K/mcL (0.0-1.3); Monocytes % 13.8 %; Neutrophils # 3.7 K/mcL (1.6-8.9); Platelet Count 287 K/mcL (140-400); Red Blood Count 4.12 M/mcL (3.82-4.97); Segmented Neutrophils % 57.5 %; White Blood Count 6.4 K/mcL (4.3-11.1)
[2019-04-27 16:11] LABS: INR 1.2; Prothrombin Time 13.7 Seconds (9.4-12.1)
[2019-04-27 16:14] LABS: Activated Partial Thrombo Time 31.5 Seconds (26.0-36.0)
[2019-04-27 16:29] LABS: Acetaminophen < 10 mcg/mL (10-20); Alanine Aminotransferase 88 Units/L (7-52); Albumin 4.7 g/dL (3.5-5.7); Albumin/Globulin Ratio 1.7 (1.1-2.2); Alkaline Phosphatase 66 Units/L (34-104); Aspartate Amino Transferase 81 Units/L (13-39); BUN/Creatinine Ratio 18 (6-26); Bilirubin,Direct 0.4 mg/dL (0.0-0.2); Bilirubin,Indirect 0.7 mg/dL (0.0-1.2); Bilirubin,Total 1.1 mg/dL (0.3-1.0); Blood Urea Nitrogen 31 mg/dL (8-23); Calcium 10.8 mg/dL (8.6-10.3); Carbon Dioxide 25 mEq/L (23-29); Chloride 88 mEq/L (98-107); Ethanol < 10 mg/dL (Less than 10); Globulin 2.7 g/dL (2.4-3.5); Glucose 212 mg/dL (70-105); Osmolality,Calculated 291 (280-300); Potassium 3.2 mEq/L (3.5-5.1); Salicylate < 2.5 mg/dL (15.0-30.0); Sodium 134 mEq/L (136-145); Total Protein 7.4 g/dL (6.4-8.9); eGFR For African Americans 36 (> 60); eGFR For Non-African Americans 30 (> 60)
[2019-04-27 16:42] LABS: Bilirubin,Urine Negative (Negative); Blood,Urine Negative (Negative); Clarity,Urine Clear (Clear); Color,Urine Yellow (Yellow); Glucose,Urine (UA) Normal (Normal); Ketones,Urine Trace mg/dL (Negative); Leukocyte Esterase,Urine Negative (Negative); Nitrite,Urine Negative (Negative); Protein,Urine Negative (Neg-Trace); Specific Gravity,Urine 1.014 (1.010-1.025); Urobilinogen,Urine Normal (Normal)
[2019-04-27 16:47] LABS: Amphetamine Screen,Urine Negative ng/mL (Cutoff=1000); Barbiturate Screen,Urine Negative ng/mL (Cutoff=200); Benzodiazepines Screen,Urine Negative ng/mL (Cutoff=200); Cannabinoid Screen,Urine Negative ng/mL (Cutoff = 50); Cocaine Screen,Urine Negative ng/mL (Cutoff= 300); Opiate Screen,Urine Negative ng/mL (Cutoff=300); Phencyclidine Screen,Urine Negative ng/mL (Cutoff=25)
[2019-04-27] MEDS ORDERED: Potassium Chloride 40 MEQ, Lidocaine 1% 2 ML in 0.9 % Sodium Chloride 500 ML IVPB ONE (16:53)
[2019-04-27 17:00] LABS: Thyroid Stimulating Hormone 1.187 mcIU/mL (0.340-5.600)
[2019-04-27] MEDS ORDERED: *HR* Heparin 5,000 UNIT/ML VIAL IVP ONE (17:49)
[2019-04-27] MEDS ORDERED: *HR* Heparin 5,000 UNIT/ML VIAL IVP PRN ×2 (17:49)
[2019-04-27] MEDS ORDERED: Naloxone 0.4 MG/ML INJ IVP PRN (18:01)
[2019-04-27] MEDS ORDERED: *HR* Promethazine 25 MG/ML VIAL IVP PRN (18:01)
[2019-04-27 18:08] LABS: Creatine Kinase 1244 Units/L (30-223)
[2019-04-27] MEDS ORDERED: Acetaminophen 325 MG TABLET PO PRN (18:11)
[2019-04-27] MEDS ORDERED: Ringers Solution, Lactated 1,000 ML IVC SCH (18:15)
[2019-04-27] MEDS: Heparin 25,000 UNIT/250 ML D5W 25,000 UNIT/250 ML IV.SOLN IVC SCH (18:54)
[2019-04-27] MEDS: Metoprolol 100 MG TABLET PO SCH (23:12)
[2019-04-27] MEDS: 0.9 % Sodium Chloride 1,000 ML IVC SCH (23:13)
[2019-04-28] MEDS: Metoprolol 100 MG TABLET PO SCH ×2 (05:46→20:40)
[2019-04-28] MEDS: 0.9 % Sodium Chloride 1,000 ML IVC SCH ×4 (07:06→20:41)
[2019-04-28] MEDS ORDERED: Ziprasidone 20 MG in Water for inj. (sterile) 1 ML IM ONE (12:11)
[2019-04-28 14:11] LABS: Basophils % 0.8 %; Eosinophils # 0.1 K/mcL (0.0-0.6); Eosinophils % 1.2 %; Hematocrit 32.4 % (35.3-44.9); Immature Granulocytes % 0.4 % (0-4); Lymphocytes # 0.9 K/mcL (0.6-4.6); Lymphocytes % 18.5 %; Mean Corpuscular HGB Conc 34.3 g/dL (31.6-35.5); Mean Corpuscular Hemoglobin 31.2 pg (28.0-33.3); Mean Platelet Volume 10.4 fL (9.4-12.4); Monocytes # 0.5 K/mcL (0.0-1.3); Monocytes % 9.6 %; Neutrophils # 3.4 K/mcL (1.6-8.9); Platelet Count 197 K/mcL (140-400); Red Blood Count 3.56 M/mcL (3.82-4.97); Red Cell Distribution Width 13.2 % (11.5-14.5); Segmented Neutrophils % 69.5 %; White Blood Count 4.9 K/mcL (4.3-11.1)
[2019-04-28 14:13] LABS: Hemoglobin 11.1 g/dL (11.5-15.4)
[2019-04-28 14:30] LABS: Magnesium 1.2 mg/dL (1.6-2.6); Phosphorous 2.4 mg/dL (2.7-4.5)
[2019-04-28 14:31] LABS: Alanine Aminotransferase 65 Units/L (7-52); Alkaline Phosphatase 50 Units/L (34-104); Aspartate Amino Transferase 66 Units/L (13-39); BUN/Creatinine Ratio 20 (6-26); Bilirubin,Total 0.9 mg/dL (0.3-1.0); Blood Urea Nitrogen 20 mg/dL (8-23); Calcium 9.1 mg/dL (8.6-10.3); Carbon Dioxide 32 mEq/L (23-29); Chloride 92 mEq/L (98-107); Glucose 167 mg/dL (70-105); Osmolality,Calculated 280 (280-300); Potassium 2.6 mEq/L (3.5-5.1); Sodium 132 mEq/L (136-145); Total Protein 5.9 g/dL (6.4-8.9); eGFR For African Americans > 60 (> 60); eGFR For Non-African Americans 56 (> 60)
[2019-04-28 14:32] LABS: Albumin 3.7 g/dL (3.5-5.7); Albumin/Globulin Ratio 1.7 (1.1-2.2); Globulin 2.2 g/dL (2.4-3.5)
[2019-04-28] MEDS ORDERED: 0.9 % Sodium Chloride 500 ML ONE (14:33)
[2019-04-28] MEDS ORDERED: 0.9 % Sodium Chloride 500 ML IV ONE (14:36)
[2019-04-28] MEDS: Heparin 25,000 UNIT/250 ML D5W 25,000 UNIT/250 ML IV.SOLN IVC SCH (14:56)
[2019-04-28] MEDS ORDERED: Perflutren Lipid Microsphere 1.3 ML in 0.9 % Sodium Chloride 8.7 ML IVP ONE (16:19)
[2019-04-28] MEDS ORDERED: Perflutren Lipid Microsphere 2 ML VIAL ONE (16:22)
[2019-04-28 18:53] LABS: Troponin I 2.38 ng/mL (< 0.04)
[2019-04-29] MEDS ORDERED: Ziprasidone 20 MG in Water for inj. (sterile) 1 ML IM PRN (01:00)
[2019-04-29 03:30] LABS: Basophils # 0.1 K/mcL (0.0-0.2); Basophils % 0.8 %; Eosinophils # 0.4 K/mcL (0.0-0.6); Eosinophils % 4.2 %; Hematocrit 34.2 % (35.3-44.9); Hemoglobin 11.8 g/dL (11.5-15.4); Immature Granulocytes % 0.3 % (0-4); Lymphocytes # 2.2 K/mcL (0.6-4.6); Lymphocytes % 24.7 %; Mean Corpuscular HGB Conc 34.5 g/dL (31.6-35.5); Mean Corpuscular Hemoglobin 31.1 pg (28.0-33.3); Mean Corpuscular Volume 90.2 fL (83.0-100.0); Mean Platelet Volume 11.6 fL (9.4-12.4); Monocytes # 0.9 K/mcL (0.0-1.3); Monocytes % 10.2 %; Neutrophils # 5.4 K/mcL (1.6-8.9); Platelet Count 217 K/mcL (140-400); Red Blood Count 3.79 M/mcL (3.82-4.97); Red Cell Distribution Width 13.3 % (11.5-14.5); Segmented Neutrophils % 59.8 %
[2019-04-29 03:59] LABS: Alanine Aminotransferase 59 Units/L (7-52); Albumin 3.7 g/dL (3.5-5.7); Albumin/Globulin Ratio 1.8 (1.1-2.2); Alkaline Phosphatase 58 Units/L (34-104); Aspartate Amino Transferase 57 Units/L (13-39); BUN/Creatinine Ratio 18 (6-26); Bilirubin,Total 0.9 mg/dL (0.3-1.0); Blood Urea Nitrogen 13 mg/dL (8-23); Calcium 8.6 mg/dL (8.6-10.3); Carbon Dioxide 25 mEq/L (23-29); Chloride 95 mEq/L (98-107); Globulin 2.1 g/dL (2.4-3.5); Glucose 116 mg/dL (70-105); Magnesium 1.9 mg/dL (1.6-2.6); Osmolality,Calculated 275 (280-300); Potassium 3.3 mEq/L (3.5-5.1); Sodium 132 mEq/L (136-145); Total Protein 5.8 g/dL (6.4-8.9); eGFR For African Americans > 60 (> 60); eGFR For Non-African Americans > 60 (> 60)
[2019-04-29] MEDS: *HR* LORazepam 2 MG/ML VIAL IVP PRN ×2 (04:17→18:48)
[2019-04-29] MEDS: 0.9 % Sodium Chloride 1,000 ML IVC SCH ×4 (05:16→23:26)
[2019-04-29] MEDS: Aspirin 81 MG TAB.CHEW PO SCH (09:34)
[2019-04-29] MEDS: Metoprolol 100 MG TABLET PO SCH ×2 (09:34→21:33)
[2019-04-29] MEDS: Heparin 25,000 UNIT/250 ML D5W 25,000 UNIT/250 ML IV.SOLN IVC SCH (23:01)
[2019-04-30] MEDS: *HR* LORazepam 2 MG/ML VIAL IVP PRN ×2 (00:40→10:57)
[2019-04-30 03:37] LABS: Basophils # 0.1 K/mcL (0.0-0.2); Basophils % 0.6 %; Eosinophils # 0.2 K/mcL (0.0-0.6); Eosinophils % 1.2 %; Hematocrit 35.7 % (35.3-44.9); Hemoglobin 12.2 g/dL (11.5-15.4); Immature Granulocytes % 0.5 % (0-4); Lymphocytes # 2.4 K/mcL (0.6-4.6); Mean Corpuscular HGB Conc 34.2 g/dL (31.6-35.5); Mean Corpuscular Hemoglobin 31.4 pg (28.0-33.3); Mean Platelet Volume 11.7 fL (9.4-12.4); Monocytes % 7.7 %; Neutrophils # 8.8 K/mcL (1.6-8.9); Platelet Count 274 K/mcL (140-400); Red Blood Count 3.88 M/mcL (3.82-4.97); Red Cell Distribution Width 13.5 % (11.5-14.5); White Blood Count 12.3 K/mcL (4.3-11.1)
[2019-04-30 03:52] LABS: BUN/Creatinine Ratio 17 (6-26); Blood Urea Nitrogen 11 mg/dL (8-23); Calcium 8.4 mg/dL (8.6-10.3); Carbon Dioxide 20 mEq/L (23-29); Chloride 98 mEq/L (98-107); Glucose 176 mg/dL (70-105); Magnesium 1.4 mg/dL (1.6-2.6); Osmolality,Calculated 272 (280-300); Potassium 3.9 mEq/L (3.5-5.1); Sodium 129 mEq/L (136-145); eGFR For African Americans > 60 (> 60); eGFR For Non-African Americans > 60 (> 60)
[2019-04-30] MEDS ORDERED: *HR* Metoprolol 5 MG/5 ML VIAL IVP ONE (04:09)
[2019-04-30 04:16] LABS: ABG Base Excess -4 mEq/L (-2 to 3); ABG HCO3 20 mEq/L (21-27); ABG Oxygen Saturation 94 % (95-98); ABG PCO2 33 mmHg (35-45); ABG PH 7.41 pH Units (7.32-7.45); ABG PO2 70 mmHg (85-104); ABG TCO2 21 mEq/L (20-26)
[2019-04-30] MEDS ORDERED: 0.9 % Sodium Chloride 1,000 ML IVC SCH (05:09)
[2019-04-30] MEDS ORDERED: Calcium Gluconate 1gm/50mL 1 GM/50 ML BAG IVPB ONE (07:45)
[2019-04-30] MEDS: Aspirin 81 MG TAB.CHEW PO SCH (09:36)
[2019-04-30] MEDS: Metoprolol 100 MG TABLET PO SCH ×2 (09:36→10:57)
[2019-04-30 12:45] VITALS: BP 107/70
== END 2019-04-30 13:36 | disposition other institution (70) | DRG 917 ==
LOC: EMEROOARM 15:14 → 2ANU 15:14 → SUATTDRO 18:21 → 2ANU 18:59
PROVIDERS: ADMIT Internal Medicine Nephrology; ATTEND Internal Medicine